=== PATIENT | female | born 1970 | race Caucasian/White ===

== ENCOUNTER 2017-07-03 15:59 | Emergency (ER) | payer OTHER ==
[~2017-07-03] VITALS: Ht 157.5 cm; Wt 75.0 kg
[2017-07-03] MEDS ORDERED: ACET30TAB PO (16:17)
[2017-07-03] MEDS ORDERED: ACET1TAB17 PO (16:17)
[2017-07-03] MEDS ORDERED: IBUP-1022 PO (17:15)
[2017-07-03] MEDS ORDERED: NORCOTAB PO (17:15)
[2017-07-03] MEDS ORDERED: PROBCAP4 PO (17:15)
[2017-07-03] MEDS ORDERED: CLEO300C2 PO (17:15)
[2017-07-03 17:21] VITALS: BP 132/90
== END 2017-07-03 17:31 | disposition home or self-care (01) ==
LOC: M ED 15:59
DX: K04.7 Periapical abscess without sinus (principal); K02.9 Dental caries, unspecified; F41.9 Anxiety disorder, unspecified; F17.210 Nicotine dependence, cigarettes, uncomplicated; Z88.0 Allergy status to penicillin; Z91.040 Latex allergy status

== ENCOUNTER 2017-10-31 22:30 | Emergency (ER) | payer OTHER ==
[2017-10-31] MEDS ORDERED: PERCOCET 5MG/325MG TAB PO (23:30)
[2017-10-31] MEDS: KETOROLAC 30 MG/ML VIAL (J1885) IM (23:51)
[2017-10-31] MEDS: PERCOCET 5MG/325MG TAB PO (23:56)
[2017-11-01] MEDS: IBUPROFEN 600 MG TAB PO
[2017-11-01] MEDS: ONDANSETRON 4 MG ORAL DISINTEGRATING TAB (S0181) PO
== END 2017-11-01 00:38 | disposition home or self-care (01) ==
LOC: M ED 11-01 00:38
DX: S06.0X1A Concussion with loss of consciousness of 30 minutes or less, initial encounter (principal); S00.03XA Contusion of scalp, initial encounter; S60.212A Contusion of left wrist, initial encounter; X58.XXXA Exposure to other specified factors, initial encounter; Y92.099 Unspecified place in other non-institutional residence as the place of occurrence of the external cause; Y93.89 Activity, other specified; Z79.899 Other long term (current) drug therapy; Z91.040 Latex allergy status; Z88.0 Allergy status to penicillin
CPT/HCPCS: 73110

== ENCOUNTER → 2017-12-02 | Outpatient (CLI) | payer OTHER ==
[2017-12-02 08:21] LABS: BASO # 0.1 10^3/uL (0.0-0.2); EOS # 0.4 10^3/uL (0.0-0.50); HEMATOCRIT 46.1 % (36.0-47.0); HEMOGLOBIN 15.3 g/dl (12.0-16.0); IMMATURE GRANULOCYTE % 0.3 % (0-3.0); LYMPH # 2.1 10^3/uL (1.5-4.5); LYMPH % 30.2 % (24.0-44.0); MEAN CORPUSCULAR HEMOGLOBIN 28.8 pg (27.0-33.0); MEAN CORPUSCULAR HGB CONC 33.2 g/dl (32.0-36.5); MEAN CORPUSCULAR VOLUME 86.8 fl (80.0-96.0); MONO # 0.7 10^3/uL (0.0-0.8); MONO % 9.7 % (0.0-5.0); NEUTROPHILS # 3.8 10^3/uL (1.8-7.7); NEUTROPHILS % 53.8 % (36.0-66.0); PLATELET COUNT, AUTOMATED 253 10^3/uL (150-450); RED BLOOD COUNT 5.31 10^6/uL (4.00-5.40); RED CELL DISTRIBUTION WIDTH 12.3 % (11.5-14.5)
[2017-12-02 08:31] LABS: INR 0.93; PROTHROMBIN TIME 12.5 SECONDS (12.4-14.5)
[2017-12-02 08:33] LABS: PARTIAL THROMBOPLASTIN TIME 43.4 SECONDS (26.8-37.9)
[2017-12-02 08:41] LABS: CREATININE FOR GFR 0.88 MG/DL (0.55-1.30); GLOMERULAR FILTRATION RATE > 60.0 (>58)
[2017-12-02 08:41] LABS: BLOOD UREA NITROGEN 12 MG/DL (7-18)
== END ==
LOC: M RAD 07:27
DX: K74.3 Primary biliary cirrhosis (principal); R94.5 Abnormal results of liver function studies; R93.5 Abnormal findings on diagnostic imaging of other abdominal regions, including retroperitoneum
CPT/HCPCS: 76705

== ENCOUNTER 2018-08-14 17:33 | Emergency (ER) | payer MEDICAID, SELFPAY, OTHER ==
[2018-08-14] MEDS: IBUPROFEN 600 MG TAB PO ×2 (19:15)
[2018-08-14 20:08] LABS: INFLUENZA A AMPLIFICATION NEGATIVE (NEGATIVE); INFLUENZA B AMPLIFICATION NEGATIVE (NEGATIVE); RSV AMPLIFICATION NEGATIVE (NEGATIVE)
[2018-08-14] MEDS: AZITHROMYCIN 250 MG TAB PO ×2 (20:18)
== END 2018-08-14 21:02 | disposition home or self-care (01) ==
LOC: M ED 17:33
DX: J06.9 Acute upper respiratory infection, unspecified (principal); Z91.040 Latex allergy status; Z88.0 Allergy status to penicillin; F17.210 Nicotine dependence, cigarettes, uncomplicated
CPT/HCPCS: 71046